=== PATIENT | male | born 1945 ===

== ENCOUNTER 2024-05-12 16:02 | Outpatient (REF) | payer MEDICARE, MEDICAID, SELFPAY ==
[2024-05-12 17:01] LABS: Abs Immature Grans 0.03 10^3/uL (0.0-0.06); Absolute Basophil Count 0.05 10^3/uL (0.0-0.2); Absolute Eosinophil Count 0.34 10^3/uL (0.0-0.7); Absolute Lymphocyte Count 1.71 10^3/uL (1.2-3.4); Absolute Monocyte Count 0.78 10^3/uL (0.1-0.8); Absolute Neutrophil Count 4.96 10^3/uL (1.2-6.7); Basophils % 0.6 %; Eosinophils % 4.3 %; HCT 39.8 % (40.0-50.0); HGB 13.8 g/dL (13.5-17.5); Immature Grans % 0.4 %; Lymphocytes % 21.7 %; MCH 30.9 pg (27.0-33.0); MCHC 34.7 % (32.0-36.0); MCV 89 fL (80-95); MPV 10.5 fL (8.0-11.0); Monocytes % 9.9 %; Neutrophils % 63.1 %; Platelet Count 220 10^3/uL (130-400); RBC 4.47 10^6/uL (4.36-5.78); RDW 12.6 % (11.8-14.1); RDW-SD 40.9 fL; WBC 7.87 10^3/uL (4.4-10.8)
[2024-05-12 17:09] LABS: ALT 25 U/L (16-63); AST 18 U/L (15-37); Albumin 3.6 g/dL (3.4-5.0); Alkaline Phosphatase 86 U/L (46-116); Anion Gap 10.4 mmol/L (3-11); BUN 24 mg/dL (7-18); Bilirubin, Total 0.51 mg/dL (0.2-1.0); CO2 26.6 mmol/L (21.0-32.0); CREATININE 1.2 mg/dL (0.70-1.30); Calcium 9.1 mg/dL (8.5-10.1); Chloride 107 mmol/L (98-107); Estimated GFR 62.67 (mL/min/1.73m2); Glucose 119 mg/dL (74-106); Potassium 4.3 mmol/L (3.5-5.1); Sodium 144 mmol/L (136-145); TSH 2.82 uIU/mL (0.36-3.74); Total Protein 6.8 g/dL (6.4-8.2)
[2024-05-12 18:43] LABS: Hemoglobin A1C 6.5 % (<5.7)
== END 2024-05-12 16:03 | disposition home or self-care (01) ==
LOC: NCHCN 16:02
PROVIDERS: Visit Provider Family Medicine
DX: E11.9 Type 2 diabetes mellitus without complications (principal)
CPT/HCPCS: 80053; 83036; 84443; 85025

== ENCOUNTER 2025-01-07 22:36 | Outpatient (REF) | payer MEDICARE, MEDICAID, SELFPAY ==
[2025-01-07 22:04] LABS: Anion Gap 9.8 mmol/L (3-11); BUN 25 mg/dL (7-18); CO2 26.2 mmol/L (21.0-32.0); CREATININE 1.2 mg/dL (0.70-1.30); Calcium 8.8 mg/dL (8.5-10.1); Chloride 107 mmol/L (98-107); Estimated GFR 62.29 (mL/min/1.73m2); Glucose 165 mg/dL (74-106); Potassium 4.4 mmol/L (3.5-5.1); Sodium 143 mmol/L (136-145)
== END 2025-01-07 22:37 | disposition home or self-care (01) ==
LOC: NCHCN 22:36
PROVIDERS: Visit Provider Family Medicine
DX: I10 Essential (primary) hypertension (principal)
CPT/HCPCS: 80048

== ENCOUNTER 2025-01-12 18:33 | Outpatient (REF) | payer MEDICARE, MEDICAID, SELFPAY ==
[2025-01-12 16:53] LABS: TSH (W/Ref FT4) 3.39 uIU/mL (0.36-3.74)
== END 2025-01-12 18:34 | disposition home or self-care (01) ==
LOC: NCHCN 18:33
PROVIDERS: Visit Provider Family Medicine
DX: E03.9 Hypothyroidism, unspecified (principal)
CPT/HCPCS: 84443

== ENCOUNTER 2025-05-04 14:54 | Outpatient (REF) | payer MEDICARE, MEDICAID, SELFPAY ==
[2025-05-04 16:19] LABS: Abs Immature Grans 0.02 10^3/uL (0.0-0.06); HCT 37.7 % (40.0-50.0); HGB 12.7 g/dL (13.5-17.5); Immature Grans % 0.3 %; MCH 30.8 pg (27.0-33.0); MCHC 33.7 % (32.0-36.0); MCV 91 fL (80-95); MPV 10.4 fL (8.0-11.0); Platelet Count 168 10^3/uL (130-400); RBC 4.13 10^6/uL (4.36-5.78); RDW 12.0 % (11.8-14.1); RDW-SD 40.4 fL; WBC 7.17 10^3/uL (4.4-10.8)
[2025-05-04 16:47] LABS: Hemoglobin A1C 7.3 % (<5.7)
[2025-05-04 17:53] LABS: Calcium 8.8 mg/dL (8.5-10.1); Chloride 105 mmol/L (98-107)
[2025-05-04 18:19] LABS: ALT 23 U/L (16-63); AST 19 U/L (15-37); Albumin 3.8 g/dL (3.4-5.0); Alkaline Phosphatase 84 U/L (46-116); Anion Gap 16.3 mmol/L (3-11); BUN 19 mg/dL (7-18); Bilirubin, Total 0.5 mg/dL (0.2-1.0); CO2 20.7 mmol/L (21.0-32.0); Glucose 133 mg/dL (74-106); Potassium 4.2 mmol/L (3.5-5.1); Sodium 142 mmol/L (136-145); TSH (W/Ref FT4) 2.29 uIU/mL (0.36-3.74); Total Protein 6.4 g/dL (6.4-8.2)
== END 2025-05-04 14:55 | disposition home or self-care (01) ==
LOC: NCHCN 14:54
PROVIDERS: Visit Provider Family Medicine
DX: E11.9 Type 2 diabetes mellitus without complications (principal); J44.9 Chronic obstructive pulmonary disease, unspecified; I48.92 Unspecified atrial flutter; E03.9 Hypothyroidism, unspecified
CPT/HCPCS: 80053; 83036; 84443; 85025